=== PATIENT | female | born 1970 | race American Indian/Alaskan Native ===

== ENCOUNTER 2017-08-09 13:33 | Emergency (ER) | payer SELFPAY ==
--- NOTE | 2017-08-09 15:06 | C.PDOC ---
History Of Present Illness 47 y/o female with history of HTN referred by PMD for evaluation of elevated Blood pressure and with c/o mild headache for "few days". Patient is non compliant with HTN medication for 2 years and reports weight gain. Patient denies blurry vision, nausea, vomiting, dizziness or any other complaints at this time. Time Seen by Provider: 08/09/17 14:57 Chief Complaint (Nursing): High Blood Pressure History Per: Patient History/Exam Limitations: no limitations Onset/Duration Of Symptoms: Days Current Symptoms Are (Timing): Still Present Past Medical History Reviewed: Historical Data, Nursing Documentation, Vital Signs Vital Signs: Last Vital Signs Temp 98.4 F 08/09/17 16:00 Pulse 70 08/09/17 16:00 Resp 18 08/09/17 16:00 BP 166/115 H 08/09/17 16:00 Pulse Ox 100 08/09/17 16:00 - Medical History PMH: HTN Surgical History: No Surg Hx Family History: States: No Known Family Hx - Social History Hx Alcohol Use: No Hx Substance Use: No Review Of Systems Constitutional: Negative for: Fever, Chills Cardiovascular: Negative for: Chest Pain Gastrointestinal: Negative for: Nausea, Vomiting Neurological: Positive for: Headache. Negative for: Dizziness Physical Exam - Physical Exam Appears: Non-toxic, No Acute Distress Skin: Warm, Dry, No Rash Head: Atraumatic, Normacephalic Eye(s): bilateral: Normal Inspection Oral Mucosa: Moist Neck: Normal ROM, Supple Cardiovascular: Rhythm Regular Respiratory: Normal Breath Sounds, No Rales, No Rhonchi, No Wheezing Gastrointestinal/Abdominal: Soft, No Tenderness, No Guarding, No Rebound Neurological/Psych: Oriented x3, Normal Speech, Normal Cognition ED Course And Treatment - Laboratory Results Result Diagrams: 08/09/17 15:17 08/09/17 15:17 Lab Interpretation: Normal (ua neg.) ECG: Interpreted By Me ECG Rhythm: Sinus Rhythm ECG Interpretation: Normal Rate From EC (BPM) O2 Sat by Pulse Oximetry: 99 (RA) Pulse Ox Interpretation: Normal - Radiology CXR: Interpreted by Me CXR Interpretation: Yes: No Acute Disease Progress Note: vasotec 40 PO Reevaluation Time: 15:52 Reassessment Condition: Improved Medical Decision Making Medical Decision Making: ACEI maxed due to apparent cardiomegaly add next bp med in 2-3 weeks by PMD normal w/u. Disposition Doctor Will See Patient In The: Office Counseled Patient/Family Regarding: Studies Performed, Diagnosis - Disposition Referrals: Julio Cesar Hanna MD [Staff Provider] - Ruddy Rose MD [Staff Provider] - Disposition: HOME/ ROUTINE Disposition Time: 15:53 Condition: GOOD Additional Instructions: Vasotec 40 mg daily (take in AM within 1/2 hour of waking up) 45 min power-walk 5 days/week 10 pound weigh loss in the next calendar year. Consider evaluation for Sleep Apnea due to R-sided heart enlargement and ? pulmonary hypertension Call Dr. Hanna- [facility] national coverage specialist- to make an appointment. Blood Pressure Check with Dr. Rose in 3 weeks. Prescriptions: Enalapril Maleate [Vasotec] 40 mg PO DAILY #30 tab Instructions: High Blood Pressure in Adults, Enalapril Forms: [employer] (Belgian) - Clinical Impression Clinical Impression: Abnormal blood pressure - Scribe Statement The provider has reviewed the documentation as recorded by the Scribakil Stearns All medical record entries made by the Scribe were at my direction and personally dictated by me. I have reviewed the chart and agree that the record accurately reflects my personal performance of the history, physical exam, medical decision making, and the department course for this patient. I have also personally directed, reviewed, and agree with the discharge instructions and disposition.
[2017-08-09 15:20] LABS: BASO % 0.5 % (0.0-2.0); EOS # 0.1 K/uL (0.0-0.7); EOS % 1.3 % (0.0-4.0); HEMOGLOBIN 13.6 g/dL (11.0-16.0); LYMPH # 1.6 K/uL (1.0-4.3); LYMPH % 25.2 % (20.0-40.0); MEAN CELL VOLUME 93.3 fL (81.0-99.0); MEAN CORPUSCULAR HEMOGLOBIN 31.8 pg (27.0-31.0); MEAN CORPUSCULAR HGB CONC 34.1 g/dL (33.0-37.0); MEAN PLATELET VOLUME 8.6 fL (7.2-11.7); MONO # 0.4 K/uL (0.0-0.8); NEUT # 4.2 K/uL (1.8-7.0); RBC 4.28 Mil/uL (3.80-5.20); RED CELL DISTRIBUTION WIDTH 13.5 % (11.5-14.5); WHITE BLOOD COUNT 6.3 K/uL (4.8-10.8)
[2017-08-09 15:28] LABS: HCG,QUALITATIVE URINE NEGATIVE (NEGATIVE)
[2017-08-09 15:29] LABS: SQUAMOUS EPITHIAL 2 /hpf (0-5); URINE BILIRUBIN NEGATIVE (NEGATIVE); URINE BLOOD 3+ (NEGATIVE); URINE CLARITY Clear (Clear); URINE COLOR Yellow (YELLOW); URINE GLUCOSE (UA) NORMAL (Normal); URINE LEUKOCYTE ESTERASE NEG Leu/uL (Negative); URINE PROTEIN 1+ mg/dL (NEGATIVE); URINE UROBILINOGEN NORMAL mg/dL (0.2-1.0)
[2017-08-09 15:39] LABS: ALB/GLOB RATIO 1.3 (1.0-2.1); ALBUMIN 4.8 g/dL (3.5-5.0); ALT/SGPT 28 U/L (9-52); AST/SGOT 27 U/L (14-36); BLOOD UREA NITROGEN 9 mg/dL (7-17); CALCIUM 9.4 mg/dl (8.6-10.4); GFR AFRICAN-AMERICAN > 60; GFR NON-AFRICAN AMERICAN > 60
[2017-08-09 15:40] LABS: BARBITURATES, UR NEGATIVE (NEGATIVE); BENZODIAZEPINES, UR NEGATIVE (NEGATIVE); OPIATES, UR NEGATIVE (NEGATIVE); PHENCYCLIDINE, UR NEGATIVE (NEGATIVE)
[2017-08-09 15:48] LABS: B-TYPE NATRIURETIC PEPTIDE 128 pg/mL (0-450)
[2017-08-09 15:54] VITALS: PULSE 70
--- NOTE | 2017-08-09 15:58 | RAD ---
HISTORY: COMPARISON: 02/21/2015. TECHNIQUE: Chest PA and lateral FINDINGS: LINES AND TUBES: None. LUNG AND PLEURA: The lungs are well inflated and clear. No pleural effusion or pneumothorax. HEART AND MEDIASTINUM: There is mild cardiomegaly. The hilar and mediastinal contours are within normal limits. SKELETAL STRUCTURES: The bony structures are within normal limits for the patient's age. VISUALIZED UPPER ABDOMEN: Normal. OTHER FINDINGS: None. IMPRESSION: No active pulmonary disease. Mild cardiomegaly.
[2017-08-09 16:22] VITALS: BP 166/115; RESP 18; TEMP 98.4
[2017-08-09 18:19] VITALS: O2SAT 99
--- NOTE | 2017-08-10 23:29 | CARD ---
APPROVED REPORT EKG Measurement Heart [id number] <Conclusion> Normal sinus rhythm Minimal voltage criteria for LVH, may be normal variant Borderline ECG
== END 2017-08-09 16:20 | disposition home or self-care (01) ==
LOC: C.ER 13:33
DX: I10 Essential (primary) hypertension (principal)
CPT/HCPCS: 71046; 80053; 81001; 83880; 84484; 84703; 85025; 93005; 99285; G0480